=== PATIENT | female | born 1995 | race Caucasian/White ===

== ENCOUNTER 2019-11-16 08:30 | Outpatient (CLI) | payer OTHER, SELFPAY ==
[2019-11-16 09:12] LABS: Glucose Fasting 87 mg/dL
[2019-11-16 11:52] LABS: Glucose 1 Hour 130 mg/dL
[2019-11-16 12:46] LABS: Glucose 2 Hour 109 mg/dL
== END 2019-11-16 08:31 | disposition home or self-care (01) ==
PROVIDERS: PCP Physician Assistant; Visit Provider Advanced Practice Midwife
DX: N76.0 Acute vaginitis (principal)
CPT/HCPCS: 36415; 82951

== ENCOUNTER 2020-06-19 12:57 | Outpatient (CLI) | payer OTHER, SELFPAY ==
[2020-06-19 13:26] LABS: Basophils Percent Auto 0.2 % (0.2-1.2); Eosinophils Percent Auto 0.7 % (0-4.4); Hematocrit 41.4 % (37.0-47.0); Hemoglobin 13.4 g/dL (12.0-15.0); Immature Granulocyte Absolute 0.02 K/mm3 (0.00-0.031); Immature Granulocyte Percent A 0.4 % (0-0.5); Lymphocytes Absolute Auto 2.05 K/mm3 (0.9-3.2); Lymphocytes Percent Auto 35.9 % (18.3-44.2); Mean Corpuscular HGB Conc 32.4 g/dl (32-36); Mean Corpuscular Hemoglobin 28.4 pg (26-34); Mean Corpuscular Volume 87.7 fl (80-100); Mean Platelet Volume 10.5 fl (7.4-10.4); Monocytes Absolute Auto 0.3 K/mm3 (0.1-0.6); Monocytes Percent Auto 5.1 % (2.6-8.5); Neutrophils Absolute Auto 3.3 K/mm3 (1.3-6.7); Neutrophils Percent Auto 57.7 % (45.5-73.1); Platelet Count Result 255 k/mm3 (150-375); Red Blood Count 4.72 M/mm3 (4.2-5.4); Red Cell Distribution Width 12.6 % (11.5-14.5); White Blood Count 5.7 K/mm3 (4.5-10.0)
[2020-06-19 13:37] LABS: Alanine Aminotransferase 10 U/L (4-35); Albumin Level 4.4 g/dL (3.5-5.1); Alkaline Phosphatase 44 U/L (38-126); Anion Gap 4 mmol/L (8-16); Aspartate Amino Transferase 17 U/L (14-36); Bilirubin,Total 0.2 mg/dL (0.2-1.3); Blood Urea Nitrogen 13 mg/dL (7-17); Calcium 9.2 mg/dL (8.4-10.2); Carbon Dioxide 32 mmol/L (22-30); Chloride 104 mmol/L (98-107); Cholesterol 141 mg/dL (0-200); Estimated Glomerular Filt Rate > 60; Glucose 106 mg/dL (65-105); HDL Direct 61 mg/dL; Potassium 3.8 mmol/L (3.4-5.0); Sodium 140 mmol/L (137-145); Triglycerides 39 mg/dL (<150)
[2020-06-19 13:47] LABS: LDL Cholesterol Direct 58 mg/dL
== END 2020-06-19 12:58 | disposition home or self-care (01) ==
LOC: ANHLAB 13:00
PROVIDERS: PCP Family Medicine; Visit Provider Family Medicine
DX: E66.3 Overweight (principal); F41.9 Anxiety disorder, unspecified
CPT/HCPCS: 36415; 80053; 80061; 84443; 85025

== ENCOUNTER 2020-06-21 10:28 | Outpatient (CLI) | payer OTHER, SELFPAY ==
[2020-06-21 11:20] LABS: Beta HCG Quantitative < 2.39 mIU/ML
== END 2020-06-21 10:29 | disposition home or self-care (01) ==
PROVIDERS: PCP Family Medicine; Visit Provider Advanced Practice Midwife
DX: N92.5 Other specified irregular menstruation (principal)
CPT/HCPCS: 36415; 84702

== ENCOUNTER 2022-03-31 19:53 | Outpatient (RCR) | payer OTHER, SELFPAY ==
[2022-03-31 20:30] LABS: Add Urine Microscopic? YES; Appearance Urine Cloudy (Clear); Bilirubin Urine Negative (Negative); Blood Urine 3+ (Negative); Color Urine Yellow (Yellow); Glucose Urine UA Negative (Negative); Ketones Urine Negative (Negative); Leukocyte Esterase Ur Negative LEU/UL (Negative); Nitrate Urine Negative (Negative); Protein Urine Negative (Negative); Specific Grav Ur 1.015 (1.001-1.035); Urobilinogen Urine 0.2 mg/dL (<2.0)
[2022-03-31 20:36] LABS: Amorphous Sediment Urine Few; Bacteria Urine Trace /hpf; RBC Urine >75 /hpf (0-2); Squamous Epithelial Cell Urine Many /hpf (Few); WBC Urine 0-3 /hpf
[2022-03-31 21:00] VITALS: PULSE 86
--- NOTE | 2022-03-31 21:05 | PC.NURSE ---
paged Dr. Zane Willard- [phone] Dr. Zane Willard returned page @[phone]- informed of pt admission for DFM since this morning. pt also states that she has felt crampy today as well. UA reviewed- NST reactive and reviewed. will order urine culture to be sent. order to send pt home with instructions on when to return to L&D.
--- NOTE | 2022-04-01 07:37 | PM.OBTRLD ---
OB - Triage/Final Diagnosis Visit Information Date of evaluation: 05/01/22 Reason for evaluation: decreased movement Comments/Additional reasons for admission: I have assessed the risk for this patient, Olivia Olmstead Rodríguez, and determined that she would benefit from observation care. Evaluation Laboratory results: Laboratory Tests 03/31/22 20:14 Urine Color Yellow Urine Appearance Cloudy H Urine pH 7.0 Ur Specific [place] 1.015 Urine Protein Negative Urine Glucose (UA) Negative Urine Ketones Negative Ur Blood (Man) 3+ H Urine Nitrate Negative Urine Bilirubin Negative Urine Urobilinogen 0.2 Leukocyte Esterase Rfl Negative Urine RBC >75 H Urine WBC 0-3 Ur Squamous Epith Cells Many H Amorphous Sediment Few H Urine Bacteria Trace Vital signs: Vital Signs - 24 hr 03/31/22 21:00 Pulse Rate 86
== END 2022-06-29 23:59 | disposition home or self-care (01) ==
LOC: ANHOBOP 19:53
PROVIDERS: Obstetrics & Gynecology; PCP Family Medicine; Visit Provider Obstetrics & Gynecology
DX: O36.8120 Decreased fetal movements, second trimester, not applicable or unspecified (principal); Z3A.25 25 weeks gestation of pregnancy
CPT/HCPCS: 59025; 81001; 87086; 87088

== ENCOUNTER 2022-04-15 07:18 | Outpatient (CLI) | payer OTHER, SELFPAY ==
[2022-04-15 09:10] LABS: Hematocrit 36.9 % (37.0-47.0)
[2022-04-15 09:28] LABS: Glucose 1 Hour PP 50gm Dose 82 mg/dL
[2022-04-15 09:58] LABS: HIV 1/2 Ab P24 Ag Result Negative (Negative)
== END 2022-04-15 07:19 | disposition home or self-care (01) ==
PROVIDERS: PCP Family Medicine; Visit Provider Obstetrics & Gynecology
DX: Z34.80 Encounter for supervision of other normal pregnancy, unspecified trimester (principal)
CPT/HCPCS: 36415; 82947; 85014; 85018; 86703; G0432

== ENCOUNTER 2022-05-13 01:14 | Observation (INO) | payer OTHER, SELFPAY ==
[2022-05-13] VITALS (20 sets, daily range): BP systolic 112–124; BP diastolic 71–81; PULSE 80–121; RESP 16; TEMP 36.7; O2SAT 99–100
--- NOTE | 2022-05-13 01:14 | OBADM ---
This patient, Olivia Rodríguez, admitted to the OB room OB Post 115 for observation. Patient/family oriented to hospital policies and general routines including ID bracelet, bed and alarms, visiting hours, pain management, procedures, bathroom and other care routines, personal items, smoking policy, room service/diet, and visiting hours. Patient/Family are encouraged to report perceived risks to care and to ask questions if they do not understand what they are told or what they should do.
--- NOTE | 2022-05-13 01:32 | PC.NURSE ---
Notified Dr. Mishra of patient arrival to OB unit with complaints of cramping and contractions that started at 0000. Patient states she was woken up with contractions that have continued and are increasing in intensity. Patient tearful upon arrival. Mild contraction palpated while placing TOCO monitor. FHT reactive and appropriate for gestational age. VSS. Patient reports nausea that started upon arrival to hospital. Orders received.
[2022-05-13] MEDS: ONDANSETRON INJ 4 MG/2 ML VIAL IV PUSH (01:46)
[2022-05-13] MEDS: DEXTROSE 5%/LACTATED RINGERS 1,000 ML 100 ML IV CONT (01:49)
[2022-05-13] MEDS: TERBUTALINE SULFATE 1 MG/ML VIAL 0.25 MG SUB-Q (01:49)
--- NOTE | 2022-05-13 02:02 | PC.NURSE ---
Patient educated on plan of care, Speculum exam and FFN collection. Patient states understanding of education and agrees to plan of care. Speculum exam performed and FFN collected. SVE performed following collection, SVE closed/thick/high/posterior/firm.
--- NOTE | 2022-05-13 02:25 | PC.NURSE ---
Patient states that her contractions/cramps have resolved and she is resting comfortably without pain.
[2022-05-13 02:54] LABS: Fetal Fibronectin Negative
--- NOTE | 2022-05-13 03:18 | PC.NURSE ---
Patient states she is no longer feeling cramping, contractions or tightening. Patient discharge instructions reviewed. Patient instructed to follow up with Dr. Calhoun as scheduled this week. labor precautions reviewed with patient and patient provided labor precautions hand out. Patient states understanding of discharge instructions and precautions and agrees to discharge. Patient denies any questions at time of discharge.
--- NOTE | 2022-05-13 06:41 | PM.OBTRLD ---
OB - Triage/Final Diagnosis Visit Information Date of evaluation: 05/13/22 Reason for evaluation: threatened labor Comments/Additional reasons for admission: I have assessed the risk for this patient, Olivia Rodríguez, and determined that she would benefit from observation care. Evaluation Laboratory results: Laboratory Tests 05/13/22 02:02 Fibronectin Negative Vital signs: Vital Signs - 24 hr 05/13/22 01:27 05/13/22 01:30 05/13/22 01:45 Temperature 98.1 F Pulse Rate 109 H 106 H 94 Respiratory Rate 16 Blood Pressure 124/75 115/71 112/81 Pulse Oximetry 05/13/22 01:51 05/13/22 01:56 05/13/22 02:01 Temperature Pulse Rate Respiratory Rate Blood Pressure Pulse Oximetry 100 100 100 05/13/22 02:06 05/13/22 02:11 05/13/22 02:17 Temperature Pulse Rate Respiratory Rate Blood Pressure Pulse Oximetry 100 100 100 05/13/22 02:22 05/13/22 02:27 05/13/22 02:32 Temperature Pulse Rate Respiratory Rate Blood Pressure Pulse Oximetry 100 100 100 05/13/22 02:37 05/13/22 02:42 05/13/22 02:47 Temperature Pulse Rate Respiratory Rate Blood Pressure Pulse Oximetry 100 100 100 05/13/22 02:52 05/13/22 02:57 05/13/22 03:02 Temperature Pulse Rate Respiratory Rate Blood Pressure Pulse Oximetry 100 100 99 05/13/22 03:07 05/13/22 03:10 Temperature Pulse Rate 97 Respiratory Rate Blood Pressure 116/74 Pulse Oximetry 100
== END 2022-05-13 03:19 | disposition home or self-care (01) ==
PROVIDERS: Admitting Provider Obstetrics & Gynecology; PCP Family Medicine; Visit Provider Obstetrics & Gynecology
DX: O47.03 False labor before 37 completed weeks of gestation, third trimester (principal); Z3A.31 31 weeks gestation of pregnancy
CPT/HCPCS: 82731; 96361; 96372; 96374; G0378; G0379; J2405; J3105; J7121

== ENCOUNTER 2022-05-29 10:03 | Outpatient (CLI) | payer OTHER, SELFPAY ==
[2022-05-29 11:04] LABS: Strep Group A RT-PCR NOT DETECTED (Negative)
== END 2022-05-29 10:04 | disposition home or self-care (01) ==
LOC: ANHOBOP 10:11
PROVIDERS: PCP Family Medicine; Visit Provider Obstetrics & Gynecology
DX: J02.9 Acute pharyngitis, unspecified (principal)
CPT/HCPCS: 87070; 87651

== ENCOUNTER 2022-06-16 15:45 | Outpatient (RCR) | payer OTHER, SELFPAY ==
--- NOTE | 2022-04-14 22:20 | PC.NURSE ---
see obix for additional documentation on NST. Dr. Mishra notified of reactive NST.
[2022-06-16 16:19] LABS: Alanine Aminotransferase 17 U/L (6-35); Albumin Level 3.6 g/dL (3.5-5.1); Alkaline Phosphatase 343 U/L (38-126); Anion Gap 8 mmol/L (8-16); Aspartate Amino Transferase 18 U/L (14-36); Bilirubin,Total 0.4 mg/dL (0.2-1.3); Blood Urea Nitrogen 7 mg/dL (7-17); Calcium 8.6 mg/dL (8.4-10.2); Carbon Dioxide 20 mmol/L (22-30); Chloride 106 mmol/L (98-107); Estimated Glomerular Filt Rate > 60; Glucose 180 mg/dL (65-110); Potassium 4.1 mmol/L (3.4-5.0); Sodium 134 mmol/L (137-145)
[2022-06-16 16:29] VITALS: BP 115/68; PULSE 101
[2022-06-25 15:48] LABS: Chenodeoxycholic Acid 0.9 umol/L (< OR = 3.9); Cholic Acid 0.6 umol/L (< OR = 2.8); Deoxycholic Acid 0.8 umol/L (< OR = 2.3); Total Bile Acids 2.3 umol/L (< OR = 8.3)
== END 2022-07-13 23:59 | disposition home or self-care (01) ==
LOC: ANHOBOP 15:45
PROVIDERS: Obstetrics & Gynecology; PCP Family Medicine; Visit Provider Obstetrics & Gynecology
DX: O36.8120 Decreased fetal movements, second trimester, not applicable or unspecified (principal); Z3A.27 27 weeks gestation of pregnancy; O36.8130 Decreased fetal movements, third trimester, not applicable or unspecified; Z3A.36 36 weeks gestation of pregnancy
CPT/HCPCS: 36415; 59025; 80053; 82542

== ENCOUNTER 2022-06-25 07:18 | Outpatient (CLI) | payer OTHER, SELFPAY ==
[2022-06-25 08:04] VITALS: BP 119/80; PULSE 84
[2022-06-25] MEDS: TERBUTALINE SULFATE 1 MG/ML VIAL 0.25 MG SUB-Q (08:45)
[2022-06-25] MEDS: fentaNYL CITRATE INJ (*CRX) 100 MCG/2 ML VIAL 50 MCG IV PUSH (08:48)
--- NOTE | 2022-06-25 09:06 | WPDOBADMIT ---
Obstetrics - Admit Note Admission Note: 26 y/o G1 at 37 weeks with breech presentation, here for external cephalic version. Rh pos. AVSS NST reactive TOCO: no contractions ABD soft, nontender, gravid. EXT nontender Imaging: Bedside ultrasound exam by me confirmed stefan breech presentation with back along the maternal right. Fundal placenta. Adequate AFV. Procedure: After appropriate informed consent was obtained, she received terbutaline 0.25 mg IM x 1. Under ultrasound guidance, ECV was attempted. The breech was elevated out of the pelvis, and a forward somersault (clockwise) was attempted, then reverse (counterclockwise). Despite several attempts, ECV was unsuccessful. The FHR was normal throughout, and the patient tolerated the procedure well. She was kept for NST observation, then was able to go home to f/u in the office.
== END 2022-06-25 11:00 | disposition home or self-care (01) ==
LOC: ANHOBOP 07:30 → ANHOBPP 07:30
PROVIDERS: PCP Family Medicine; Visit Provider Obstetrics & Gynecology
DX: O32.1XX0 Maternal care for breech presentation, not applicable or unspecified (principal); Z3A.00 Weeks of gestation of pregnancy not specified
CPT/HCPCS: 99199; J3010; J3105

== ENCOUNTER 2022-06-30 18:26 | Inpatient (IN) | payer OTHER, SELFPAY ==
--- NOTE | 2022-06-17 07:46 | PM.OBTRLD ---
OB - Triage/Final Diagnosis Visit Information Reason for evaluation: other (pruritis) Comments/Additional reasons for admission: I have assessed the risk for this patient, Olivia K Gladis, and determined that she would benefit from observation care.
[2022-06-30] VITALS (40 sets, daily range): BP systolic 106–157; BP diastolic 55–97; PULSE 77–221; RESP 14–17; TEMP 36.3–37; O2SAT 97–99; BMI 35.2
--- NOTE | 2022-06-30 20:05 | LDADM ---
This patient, Olivia Griffith, was admitted to Labor/Delivery/Recovery 120 on 06/30/22 at 18:26. Plans for labor, pain management and were discussed with patient. Patient/family oriented to hospital policies and general routines including ID bracelet, bed and alarms, visiting hours, pain management, procedures, bathroom and other care routines, personal items, smoking policy, room service/diet and guest tray routines, infant security routines, and visiting hours. Patient/Family are encouraged to report perceived risks to care and to ask questions if they do not understand what they are told or what they should do. See OBIX for further documentation.
[2022-06-30] MEDS: LACTATED RINGERS 1,000 ML 125 ML IV CONT ×2 (20:15→21:15)
--- NOTE | 2022-06-30 21:29 | WPDANESEPPF ---
Anes - Initial Pre Proc Eval Procedure: Operation Date: 06/30/22 21:45 Proposed Procedures p Section - Erick Calhoun MD Date/Time: 06/30/22 21:29 Surgeon: Erick Calhoun MD Pre Op Diagnosis: Breech station Pre Op Diagnosis: contractions Patient Data Age: 26 Gender: F Height: 1.63 m Weight: 93 kg Last Vital Signs Pulse 86 06/30/22 21:16 BP 125/80 06/30/22 21:16 Allergies Allergy/AdvReac Type Severity Reaction Status Date / Time capsaicin Allergy Hives Verified 06/22/20 12:39 Home Medications Medication Instructions Recorded Confirmed Type PNV 153-FA 400 mcg-om3 35 mg-dha 1 tablet PO DAILY 06/16/22 06/30/22 History 25 mg-epa 5 mg-fish oil chew tablet ( Gummies) Laboratory Tests 06/30/22 06/30/22 21:15 21:15 WBC Pending RBC Pending Hgb Pending Hct Pending MCV Pending MCH Pending MCHC Pending RDW Pending Plt Count Pending MPV Pending Immature Gran % (Auto) Pending Neut % (Auto) Pending Lymph % (Auto) Pending [place] % (Auto) Pending Eos % (Auto) Pending Baso % (Auto) Pending Lymph # (Auto) Pending [place] # (Auto) Pending Eos # (Auto) Pending Baso # (Auto) Pending Abs Immat Gran (auto) Pending Absolute Neuts (auto) Pending Absolute Nucleated RBC Pending Nucleated RBC % Pending RPR Pending Patient hx anesthesia problems: none Family hx anesthesia problems: none Results Review: All pre-operative results and documents have been reviewed as part of the pre-operative evaluation. [facility] Past Medical History Medical History Spontaneous miscarriage Surgical History Surgical History History of tonsillectomy (~03/2019) Family History Family History Father , Motorcycle accident Injury Mother No problems noted. Grandparent Injury Hypertension Other Mitral valve prolapse Social History Social History Smoking status: Never smoker Second hand tobacco smoke exposure: No Alcohol intake: never Substance use: never Substance use type: does not use Lack of Transportation: No Lack of Food: Never True Current Housing: I Have Housing Concerned About Future Housing: No Difficulty Paying Gas/Electric Bills: No Difficulty Paying for Meds: No Currently Unemployed: No Education: Bachelor's Degree Difficulty w/ Childcare or Family Care: No Living arrangements: with family Spiritual care concerns: No Anes - Eval Final PreProcedure Day of Procedure 06/30/22 21:29 Patient weight: normal Heart: regular rate and rhythm Lungs: clear to auscultation Airway: Mallampati scale class II Neurological: alert and oriented Last oral intake: 6 hours ASA classification: II Emergent: no Anesthetic plan: proceed Anesthesia type and monitoring: regional spinal Results Review: All pre-operative results and documents have been reviewed as part of the pre-operative evaluation. Informed Consent: The patient's anesthetic plan and its attendant risks and benefits were discussed with the patient/family/POA. Questions were solicited and answers provided to the satisfaction of the patient/family/POA.
[2022-06-30 21:33] LABS: Basophils Percent Auto 0.2 % (0.2-1.2); Eosinophils Percent Auto 0.2 % (0-4.4); Hematocrit 37.8 % (37.0-47.0); Hemoglobin 12.1 g/dL (12.0-15.0); Immature Granulocyte Absolute 0.08 K/mm3 (0.00-0.031); Immature Granulocyte Percent A 0.6 % (0-0.5); Lymphocytes Absolute Auto 1.88 K/mm3 (0.9-3.2); Lymphocytes Percent Auto 14.9 % (18.3-44.2); Mean Corpuscular Hemoglobin 26.9 pg (26-34); Mean Platelet Volume 10.9 fl (7.4-10.4); Monocytes Absolute Auto 0.7 K/mm3 (0.1-0.6); Monocytes Percent Auto 5.7 % (2.6-8.5); Neutrophils Absolute Auto 9.9 K/mm3 (1.3-6.7); Neutrophils Percent Auto 78.4 % (45.5-73.1); Platelet Count Result 271 k/mm3 (150-375); Red Cell Distribution Width 13.9 % (11.5-14.5); White Blood Count 12.6 K/mm3 (4.5-10.0)
--- NOTE | 2022-06-30 22:02 | PM.IMHP ---
H&P: HPI History of Present Illness Date/Time: 06/30/22 22:02 Chief Complaint: Contractions Narrative: 26 y/o G1 at 38 1/7 weeks here with contractions. She is known to have breech presentation, had an unsuccessful attempt at external cephalic version. Contractions began this evening. No leakage of fluid. GBS neg. Review of Systems Review of Systems: All systems reviewed & are unremarkable except as noted in HPI and below PMFSH Past Medical History Medical History Spontaneous miscarriage Surgical History Surgical History History of tonsillectomy (~03/2019) Family History Family History Father , Motorcycle accident Injury Mother No problems noted. Grandparent Injury Hypertension Other Mitral valve prolapse Social History Social History Smoking status: Never smoker Second hand tobacco smoke exposure: No Alcohol intake: never Substance use: never Substance use type: does not use Lack of Transportation: No Lack of Food: Never True Current Housing: I Have Housing Concerned About Future Housing: No Difficulty Paying Gas/Electric Bills: No Difficulty Paying for Meds: No Currently Unemployed: No Education: Bachelor's Degree Difficulty w/ Childcare or Family Care: No Living arrangements: with family Spiritual care concerns: No Meds Home Medications and Allergies Home Medications Medication Instructions Recorded Confirmed Type PNV 153-FA 400 mcg-om3 35 mg-dha 1 tablet PO DAILY 06/16/22 06/30/22 History 25 mg-epa 5 mg-fish oil chew tablet ( Gummies) Allergies Allergy/AdvReac Type Severity Reaction Status Date / Time capsaicin Allergy Hives Verified 06/30/22 21:51 Vital Signs Vital Signs - 24 hr 06/30/22 19:46 06/30/22 20:01 06/30/22 20:16 Temperature Pulse Rate 94 93 89 Respiratory Rate Blood Pressure 133/82 123/71 125/81 Pulse Oximetry Oxygen Delivery 06/30/22 20:46 06/30/22 21:16 06/30/22 21:30 Temperature 37.0 C Pulse Rate 91 86 Respiratory Rate 17 Blood Pressure 123/80 125/80 Pulse Oximetry Oxygen Delivery 06/30/22 18:39 06/30/22 21:55 06/30/22 21:43 Temperature 37.0 C Pulse Rate Respiratory Rate 15 Blood Pressure Pulse Oximetry 98 Oxygen Delivery Room Air Exam Const: Orientation/consciousness: patient oriented x3 Other: Well-developed, well-nourished female in no acute distress. Neck: Thyroid: thyroid normal Lymphatic: no lymphadenopathy noted (in neck, axilla or inguinal nodes) Resp: Effort & Inspection: normal respiratory effort Auscultation: clear to auscultation bilaterally Cardio: Rate: regular rate Rhythm: regular rhythm Heart sounds: S1 normal heart sound present and S2 normal heart sound present GI: Other: ABD: Soft, nontender, nondistended, gravid. NST reactive. TOCO: contractions every 3-5 min No guarding or rebound tenderness. No hepatosplenomegaly. Bedside ultrasound exam by me confirms persistent breech presentation. : General: Yes no CVA tenderness Other: Cervix has changed from 1 to 2.5 cm / 80% effacement and BBOW per RN. Back/Spine/Pelvis: Back: no CVA tenderness Skin: General skin exam: normal color and no rashes or lesions noted Neuro: General: patient oriented x3 Extrem: Other: Extremities: nontender with no edema Psych: Mental Status: mental status grossly normal Affect: normal affect H&P: Results Labs Labs: Short CBC 06/30/22 Range/Units 21:15 WBC 12.6 H (4.5-10.0) K/mm3 Hgb 12.1 (12.0-15.0) g/dL Hct 37.8 (37.0-47.0) % Plt Count 271 (150-375) k/mm3 Assessment and Plan Assessment and plan (1) Breech presentation: Code(s): O32.1XX0 - Maternal c
[2022-06-30] MEDS: ceFAZolin 2 GM/D5W 50 ML 2 GM/50 ML BAG IVPB (22:06)
--- NOTE | 2022-06-30 22:06 | WPDHPUPDATE1 ---
History and Physical Update Update Date/Time: 06/30/22 22:06 History and Physical has been reviewed, including an updated exam of the patient. There are NO changes in the patient's condition. Risks, benefits, and alternatives have been discussed and questions answered. Patient agrees to proceed with procedure.
--- NOTE | 2022-06-30 22:59 | P.PCNOB_ITS ---
OB - Delivery Note Procedure Delivery date: 06/30/22 Procedure: Procedures Operation Date: 06/30/22 21:45 <No data on this case meets the specified criteria> Primary low transverse delivery Events: Breech Presentation Delivery monitor: External FHT and External Uterine Route of delivery: Specimen: Yes (cord blood) Quantitative Blood Loss (ml): 355 Anesthesia type: Spinal Disposition: PACU Complications: None Narrative: The patient was taken to the operating room where she was prepared and draped in the usual sterile fashion in dorsal supine position with a leftward tilt. She received cefazolin preoperatively. Spinal anesthesia was found to be adequate. A Pfannenstiel skin incision was made and carried through to the underlying layer of the fascia. The fascia was incised in the midline and the incision was extended laterally. The fascia was dissected free of the underlying rectus muscles. The rectus muscles were in the midline. The peritoneum was identified, tented up and entered sharply. The peritoneal incision was extended superiorly and inferiorly with good visualization of the bladder. The bladder blade was placed. The vesicouterine peritoneum was identified, tented up and entered sharply. The incision was extended laterally and the bladder flap was developed. The bladder blade was replaced. The uterus was then incised sharply in a transverse fashion along the lower uterine segment. The incision was extended laterally. The 's breech was delivered atraumatically to the sterile field to the level of the scapulae. The arms were swept across the chest and delivered. The head was gently flexed and easily delivered. The nose and mouth were bulb suctioned. After a delay, the cord was clamped and cut. The infant was handed off the field. Cord blood was collected. The placenta was removed manually and was passed off the field. The uterus was exteriorized and cleared of all clots and debris. The uterine incision was reapproximated using 0 Monocryl in a running, locked fashion. A second, imbricating layer was run with the same suture. Excellent hemostasis resulted as did excellent reapproximation of the normal anatomy. The uterus was returned the abdomen. The pelvis was irrigated copiously with warmed normal saline. Rigorous hemostasis was assured. The fascial layer was reapproximated using 0 Vicryl in a running fashion. The skin was closed with a running, subcuticular stitch of 4 0 Vicryl. Dermaflex was applied externally. Sponge, lap, needle and instrument counts were correct. The patient was taken to the recovery room in stable condition. The infant went to the nursery in stable condition. I was present and scrubbed the entire procedure. [place] Baby Date of : 06/30/22 Time of : 22:27 Weeks of gestation at delivery: 38 gender: Male Weight (pounds): 6 Weight (ounces): 12 presentation: breech Placenta delivery description: Manual Removal and Normal Configuration Cord Vessel Description: 3 Vessels and Delayed Cord Clamping score one minute: 8 score five minutes: 9
--- NOTE | 2022-06-30 23:02 | PM.OBDSVD ---
DS: Admitting Diagnosis Discharge Date 07/03/22 Admitting Diagnosis IUP at 38 1/7 weeks Labor Breech presentation DS: Discharge Diagnosis Discharge Diagnosis (1) Breech presentation: Code(s): O32.1XX0 - Maternal care for breech presentation, not applicable or unspecified Status: Acute OB - DS: Summary OB Procedures : NST and Ultrasound OB Procedures Intrapartum: OB Procedures: : None Peripartum Data Procedures: Procedures Operation Date: 06/30/22 21:45 <No data on this case meets the specified criteria> Time Spent with Patient Time attestation: Total time spent providing and/or coordinating discharge services: DS: Data Data Completed and Pending Labs on day of discharge: Labs from last 24 hours 06/30/22 06/30/22 06/30/22 21:15 21:15 21:15 WBC 12.6 H RBC 4.50 Hgb 12.1 Hct 37.8 MCV 84.0 MCH 26.9 MCHC 32.0 RDW 13.9 Plt Count 271 MPV 10.9 H Immature Gran % (Auto) 0.6 H Neut % (Auto) 78.4 H Lymph % (Auto) 14.9 L [place] % (Auto) 5.7 Eos % (Auto) 0.2 Baso % (Auto) 0.2 Lymph # (Auto) 1.88 [place] # (Auto) 0.7 H Eos # (Auto) 0.0 Baso # (Auto) 0.0 Abs Immat Gran (auto) 0.08 H Absolute Neuts (auto) 9.9 H Absolute Nucleated RBC 0.0 Nucleated RBC % 0.0 RPR Pending Blood Type A Positive Antibody Screen Negative Discharge Plan Discharge Attending physician on discharge: Erick Calhoun Discharging Clinician: Erick Calhoun Patient Disposition: Home, Self-Care Activity: may shower, may drive after 2 weeks and pelvic rest Diet: regular Wound Care Instructions: incision open to air Discharge Instructions: Education: Mom and Baby Guide Given to: Mother Follow-Up: Call your delivering provider's office for an appointment to be seen in: 1 Week Mom and baby should come to the [facility] for the follow-up appointment. Appointment Date/Time: July 05, 2022 at 11:00 am What to expect at your follow-up visit: Blood Pressure Check Call [phone] if you are unable to keep your appointment time. BREAST CARE: * Wear a snug supportive bra. * For engorgement discomfort: Breast Feeding: * Apply warm moist washcloths * Express milk as needed to relieve engorgement * Wear loose clothing Bottle Feeding: * May apply ice packs * For sore nipples: * Identify correct latch-on * Apply warm moist washcloths before and after nursing * Air dry nipples after nursing * May apply Lansinoh cream to nipples ABDOMINAL INCISION: (if applicable) * Allow incision to air dry * Do NOT use lotions for powders on your incision * When showering, allow soap and water to run over the incision, but do not wash incision PERINEAL CARE: * Until bleeding stops, use your brianna bottle after urinating * Change your pad frequently throughout the day * No tub baths until seen by your physician - You may shower ACTIVITY: * Rest as much as possible. * Do not exercise or lift anything heavier than your baby (such as laundry or other children.) * Avoid stairs or driving as much as possible. * Do not put anything into the vagina. No douching, tampons, or sexual activity until seen by physician. NOTIFY PHYSICIAN IF YOU HAVE ANY QUESTIONS OR IF ANY OF THE FOLLOWING SYMPTOMS OCCUR: * If your incision becomes red, swollen, or more painful than what you have experienced in the hospital. * If your vaginal bleeding becomes foul smelling. * If your vaginal bleeding becomes more heavy than a period or if your bleeding changes from pink to bright red. However, you may pass an occasional walnut-sized clot once or twice for the first week . * If you experience a sharp, shooting pain in you calves. * If you discover a hard, reddened area on your breast or if you experience flu-like sympt
[2022-06-30] MEDS: fentaNYL CITRATE INJ (*CRX) 100 MCG/2 ML VIAL 25 MCG IV PUSH ×2 (23:19→23:37)
[2022-06-30] MEDS: OXYTOCIN 30 UNITS/NS 500 ML 30 UNITS/500 ML BAG 125 UNITS IV CONT (23:59)
[2022-07-01] VITALS (34 sets, daily range): BP systolic 95–124; BP diastolic 44–98; PULSE 70–91; RESP 14–18; TEMP 36.4–37.4; O2SAT 97–100
[2022-07-01] MEDS: fentaNYL CITRATE INJ (*CRX) 100 MCG/2 ML VIAL 25 MCG IV PUSH (00:50)
--- NOTE | 2022-07-01 01:21 | PC.NURSE ---
Patient transferred to post room # 282 via ( stretcher ). Support person present. Oriented to unit, room, information board, rooming in, admission packet and security measures. Patient verbalizes understanding.
[2022-07-01] MEDS: KETOROLAC 30 MG/ML VIAL (*BKC) IV PUSH (01:48)
[2022-07-01] MEDS: HYDROcodone/acetaminophen (*CRX) 5-325 MG TABLET 1 TAB PO ×4 (03:13→22:33)
[2022-07-01] MEDS: DEXTROSE 5%/0.45% SOD CHL 1,000 ML 125 ML IV CONT (04:54)
[2022-07-01 05:35] LABS: Basophils Percent Auto 0.2 % (0.2-1.2); Eosinophils Percent Auto 0.1 % (0-4.4); Hematocrit 33.9 % (37.0-47.0); Hemoglobin 10.9 g/dL (12.0-15.0); Immature Granulocyte Absolute 0.06 K/mm3 (0.00-0.031); Immature Granulocyte Percent A 0.5 % (0-0.5); Lymphocytes Absolute Auto 1.82 K/mm3 (0.9-3.2); Lymphocytes Percent Auto 14.2 % (18.3-44.2); Mean Corpuscular HGB Conc 32.2 g/dl (32-36); Mean Corpuscular Hemoglobin 27.2 pg (26-34); Mean Corpuscular Volume 84.5 fl (80-100); Mean Platelet Volume 10.5 fl (7.4-10.4); Monocytes Percent Auto 7.9 % (2.6-8.5); Neutrophils Absolute Auto 9.9 K/mm3 (1.3-6.7); Neutrophils Percent Auto 77.1 % (45.5-73.1); Platelet Count Result 213 k/mm3 (150-375); Red Blood Count 4.01 M/mm3 (4.2-5.4); Red Cell Distribution Width 14.1 % (11.5-14.5); White Blood Count 12.9 K/mm3 (4.5-10.0)
[2022-07-01] MEDS: DOCUSATE SODIUM 100 MG CAPSULE PO ×2 (07:13→18:48)
[2022-07-01] MEDS: IBUPROFEN 600 MG TABLET PO ×3 (07:14→22:33)
--- NOTE | 2022-07-01 07:33 | WPDANLDPN2 ---
Anes-Prog Note L&D Date/Time: 07/01/22 07:33 Neuro status: Neuro function grossly intact. Vital Signs: Last Vital Signs Temp 36.4 C 07/01/22 04:36 Pulse 78 07/01/22 04:36 Resp 16 07/01/22 04:36 BP 107/69 07/01/22 04:36 Pulse Ox 100 07/01/22 04:36 O2 Del Method Room Air 07/01/22 01:00 Pain score (VAS): 0 I/O: Intake & Output 06/30/22 06/30/22 07/01/22 15:59 23:59 07:59 Intake Total 2000 600 Output Total 555 913 Balance 1440 772 Patient feedback: Patient satisfied with anesthetic care.
--- NOTE | 2022-07-01 07:33 | WPDANLDNPN2 ---
Anes-Prog Note L&D-Neuraxial Date/Time: 07/01/22 07:33 Patient feedback: Patient satisfied with post-operative pain management.
[2022-07-01 11:29] LABS: Rapid Plasma Reagin Non-Reactive (NonReactive)
[2022-07-01] MEDS: MULTIVIT/MIN/PREN/FOL AC/IRON TABLET 1 TAB PO (11:41)
--- NOTE | 2022-07-01 12:56 | PM.OBPNVD ---
OB - PN: Subj Subjective Date/time seen: 07/01/22 12:56 Narrative: Pain OK. Tolerating diet. Would like circumcision for son. OB - PN: Obj Data Labs 07/01/22 05:27 Labs: Laboratory Results - last 24 hr 06/30/22 06/30/22 06/30/22 21:15 21:15 21:15 WBC 12.6 H RBC 4.50 Hgb 12.1 Hct 37.8 MCV 84.0 MCH 26.9 MCHC 32.0 RDW 13.9 Plt Count 271 MPV 10.9 H Immature Gran % (Auto) 0.6 H Neut % (Auto) 78.4 H Lymph % (Auto) 14.9 L [place] % (Auto) 5.7 Eos % (Auto) 0.2 Baso % (Auto) 0.2 Lymph # (Auto) 1.88 [place] # (Auto) 0.7 H Eos # (Auto) 0.0 Baso # (Auto) 0.0 Abs Immat Gran (auto) 0.08 H Absolute Neuts (auto) 9.9 H Absolute Nucleated RBC 0.0 Nucleated RBC % 0.0 RPR Non-reactive Blood Type A Positive Antibody Screen Negative 07/01/22 05:27 WBC 12.9 H RBC 4.01 L Hgb 10.9 L Hct 33.9 L MCV 84.5 MCH 27.2 MCHC 32.2 RDW 14.1 Plt Count 213 MPV 10.5 H Immature Gran % (Auto) 0.5 Neut % (Auto) 77.1 H Lymph % (Auto) 14.2 L [place] % (Auto) 7.9 Eos % (Auto) 0.1 Baso % (Auto) 0.2 Lymph # (Auto) 1.82 [place] # (Auto) 1.0 H Eos # (Auto) 0.0 Baso # (Auto) 0.0 Abs Immat Gran (auto) 0.06 H Absolute Neuts (auto) 9.9 H Absolute Nucleated RBC 0.0 Nucleated RBC % 0.0 RPR Blood Type Antibody Screen OB - PN A/P Plan Comments: A: POD#1, doing well. P: Routine care. Reviewed circ. Exam Narrative: AVSS I/O OK ABD soft, nontender, fundus firm. Incision c/d/i. EXT nontender
--- NOTE | 2022-07-01 13:20 | PC.NURSE ---
[id number] Introductions were made, then consulted with patient to assess needs related to . Mother led the conversation with her?plans to feed?her infant and the?experience so far. Resources provided for inpatient with name written on the white board and offer of assistance. Mother voiced understanding of information and will call if there is a request for assistance. Reported to the primary RN. [phone] Purposefully rounded after a request to assist with . Mother is holding infant in clothing. Mother works well with her infant with encouragement and education. Encouraged understanding of the benefits of skin to skin (demonstrating unwrapping infant and placing upright on her chest), stimulating with massage touch, changing positions to encourage wakefulness, how to watch for early feeding cues, positioning, supporting with the tea cup/sandwich hold with ear, shoulder, hip alignment, asymmetrical latch (off-center), leading with the chin with a big, open, wide gape and body close to mother. Infant latched optimally to the left breast in football position. Education given to mother of how to visualize suck/swallow ratios and listen for drinking at the breast. Infant was able to maintain latch without discomfort to mother. Nipple care reviewed with optimal latch and good positioning. Resources used to facilitate learning were used with the tool. Reviewed detaching from the breast and to encourage offering the right breast. Resources provided for inpatient assistance. Mother voiced understanding of information, demonstrated learning and will call if there is a request for assistance. Reported to the primary RN.
--- NOTE | 2022-07-01 14:31 | PC.NURSE ---
[id number] Consulted with patient to assess needs related to . Mother led conversation with her experience with feeding baby so far. Mother works well with her infant with encouragement. Post C/S mother is in a chair for the first time. Reviewed working with , supporting breast and how to protect the nipples with an optimal deep latch, and good positioning. Reviewed positioning and alignment, supporting breast, off-centered (asymmetrical latch) and leading with the chin with big, open, wide gape. Attempted to latch optimally to the right breast in football position. Post circumcision Infant was not able to latch with the tea cup hold that was used earlier. Encouraged understanding the benefits of skin to skin and hand expressing for colostrum. Infant fed colostrum from a spoon, lapped up some colostrum with his tongue, then was gaggy and feeding method was switched to a syringe. Mother was assisted back to the bed as she is hurting and uncomfortable. Mother voiced understanding of the education shared, to call for assistance if the does not latch or if there is discomfort with . Reported to the primary RN.
[2022-07-01] MEDS: HYDROcodone/acetaminophen (*CRX) 10-325 MG TABLET 1 TAB PO (14:35)
[2022-07-02] MEDS: HYDROcodone/acetaminophen (*CRX) 5-325 MG TABLET 1 TAB PO ×3 (04:58→17:01)
[2022-07-02] MEDS: IBUPROFEN 600 MG TABLET PO ×3 (04:59→17:00)
[2022-07-02] MEDS: DOCUSATE SODIUM 100 MG CAPSULE PO ×2 (08:05→17:00)
[2022-07-02] MEDS: MULTIVIT/MIN/PREN/FOL AC/IRON TABLET 1 TAB PO (08:05)
[2022-07-02] MEDS: HYDROcodone/acetaminophen (*CRX) 10-325 MG TABLET 1 TAB PO ×2 (08:05→22:48)
[2022-07-02 08:20] VITALS: BP 100/62; PULSE 67; RESP 16; TEMP 36.9; O2SAT 99
--- NOTE | 2022-07-02 08:47 | PM.OBPNVD ---
OB - PN: Subj Subjective Date/time seen: 07/02/22 08:47 Narrative: Pain OK. Tolerating diet. OB - PN: Obj Data Labs 07/01/22 05:27 Labs: Laboratory Results - last 24 hr 06/30/22 21:15 RPR Non-reactive OB - PN A/P Plan Comments: A: POD#2, doing well. P: Routine care. Exam Narrative: AVSS I/O OK ABD soft, nontender, fundus firm. Incision c/d/i. EXT nontender
--- NOTE | 2022-07-02 11:11 | PC.NURSE ---
[phone] Consulted with mother to assess needs. Mother states she has been through the night and denies any concerns or need for assistance from at this time. Mother also has great support and resources provided for mother to request an inpatient or outpatient assistance. Mother has relationships to people who work at [facility] and the mom/baby guide for additional resources. Reported to Primary RN.
[2022-07-02 19:58] VITALS: BP 117/65; PULSE 88; RESP 18; TEMP 36.8; O2SAT 99
[2022-07-03] MEDS: HYDROcodone/acetaminophen (*CRX) 5-325 MG TABLET 1 TAB PO ×4 (05:15→19:06)
[2022-07-03] MEDS: IBUPROFEN 600 MG TABLET PO ×3 (05:16→19:06)
[2022-07-03 07:55] VITALS: BP 116/68; PULSE 87; RESP 22; TEMP 36; O2SAT 100
--- NOTE | 2022-07-03 08:00 | PC.NURSE ---
PT introductions made and plan of care discussed per post op c section, pain management, breast feeding, daily care activities. PT and spouse both recipients of such instructions and no barriers to learning identified at this time. PT received such instructions per one to one discussion, mom baby care guide and demonstrations this shift. Pt verbalized understanding of such care.
--- NOTE | 2022-07-03 08:09 | PC.NURSE ---
On 07/03/22, the student, Judith Trevizo, provided care and completed [facility] documentation on this patient. I have reviewed the student's documentation and agree with the findings.
--- NOTE | 2022-07-03 08:54 | PM.OBPNVD ---
OB - PN: Subj Subjective Date/time seen: 07/03/22 08:54 Narrative: Pain OK. Tolerating diet. Considering discharge to home. OB - PN: Obj Data Labs 07/01/22 05:27 OB - PN A/P Plan Comments: A: POD#3, doing well. P: May go home to f/u 4 weeks. Exam Narrative: AVSS ABD soft, nontender, fundus firm. Incision c/d/i. EXT nontender
[2022-07-03] MEDS: DOCUSATE SODIUM 100 MG CAPSULE PO (10:58)
[2022-07-03] MEDS: SIMETHICONE 80 MG TAB.CHEW PO ×2 (10:58→15:25)
[2022-07-03] MEDS: MULTIVIT/MIN/PREN/FOL AC/IRON TABLET 1 TAB PO (10:59)
[2022-07-03 11:00] VITALS: PULSE 87; RESP 22; O2SAT 100
[2022-07-03 17:00] VITALS: BP 116/68; PULSE 87; RESP 22; TEMP 36; O2SAT 100
[2022-07-05 11:30] VITALS: BP 120/87; PULSE 90; RESP 18; TEMP 36.9; O2SAT 99
== END 2022-07-03 19:23 | disposition home or self-care (01) | DRG 788 ==
LOC: ANHLDR 23:03 → ANHOB2 07-01 01:22
PROVIDERS: Admitting Provider Obstetrics & Gynecology; PCP Family Medicine; Visit Provider Obstetrics & Gynecology
PROC: 10D00Z1 Extraction of Products of Conception, Low, Open Approach (ICD-10-PCS; CPT 59514; principal; 2022-06-30 21:45)
DX: O32.1XX0 Maternal care for breech presentation, not applicable or unspecified (principal); Z37.0 Single live birth; Z3A.38 38 weeks gestation of pregnancy
CPT/HCPCS: 36415; 85025; 86592; 86850; 86900; 86901; A9270; J0690; J1885; J2274; J2590; J3010; J7120

== ENCOUNTER 2023-10-10 08:06 | Outpatient (CLI) | payer OTHER, SELFPAY | END 2023-10-10 08:07 | disposition home or self-care (01) | PROVIDERS: Visit Provider Obstetrics & Gynecology | DX: Z34.80 Encounter for supervision of other normal pregnancy, unspecified trimester (principal) | CPT/HCPCS: 36415; 84144; 84702 ==

== ENCOUNTER 2023-10-14 09:58 | Outpatient (CLI) | payer OTHER, SELFPAY ==
[2023-10-14 10:53] LABS: Beta HCG Quantitative 229.39 mIU/ML
== END 2023-10-14 09:59 | disposition home or self-care (01) ==
LOC: ANHLAB 10:02
PROVIDERS: Visit Provider Obstetrics & Gynecology
DX: O20.0 Threatened abortion (principal); Z3A.00 Weeks of gestation of pregnancy not specified
CPT/HCPCS: 36415; 84702

== ENCOUNTER 2023-11-20 09:10 | Observation (INO) | payer OTHER, SELFPAY ==
[2023-11-20 09:30] VITALS: BMI 31.8
[2023-11-20] MEDS: DEXTROSE 5%/LACTATED RINGERS 1,000 ML 999 ML IV CONT (10:34)
[2023-11-20] MEDS: ONDANSETRON INJ 4 MG/2 ML VIAL IV PUSH (10:34)
[2023-11-20 10:37] VITALS: BP 111/64; PULSE 76
[2023-11-20 10:38] VITALS: BP 111/64; PULSE 76; RESP 16; TEMP 37.2
[2023-11-20 10:44] LABS: Basophils Percent Auto 0.1 % (0.2-1.2); Eosinophils Percent Auto 0.4 % (0-4.4); Hematocrit 37.5 % (37.0-47.0); Hemoglobin 12.8 g/dL (12.0-15.0); Immature Granulocyte Absolute 0.01 K/mm3 (0.00-0.031); Immature Granulocyte Percent A 0.1 % (0-0.5); Lymphocytes Absolute Auto 1.88 K/mm3 (0.9-3.2); Lymphocytes Percent Auto 25.4 % (18.3-44.2); Mean Corpuscular HGB Conc 34.1 g/dl (32-36); Mean Corpuscular Hemoglobin 29.4 pg (26-34); Mean Platelet Volume 10.5 fl (7.4-10.4); Monocytes Absolute Auto 0.4 K/mm3 (0.1-0.6); Monocytes Percent Auto 5.5 % (2.6-8.5); Neutrophils Absolute Auto 5.1 K/mm3 (1.3-6.7); Neutrophils Percent Auto 68.5 % (45.5-73.1); Platelet Count Result 242 k/mm3 (150-375); Red Blood Count 4.36 M/mm3 (4.2-5.4); Red Cell Distribution Width 12.9 % (11.5-14.5); White Blood Count 7.4 K/mm3 (4.5-10.0)
[2023-11-20 11:13] LABS: Add Urine Microscopic? NO; Appearance Urine Clear (Clear); Bilirubin Urine Negative (Negative); Blood Urine Negative (Negative); Color Urine Yellow (Yellow); Glucose Urine UA Negative (Negative); Ketones Urine 1+ mg/dL (Negative); Leukocyte Esterase Ur Negative LEU/UL (Negative); Nitrate Urine Negative (Negative); Protein Urine Negative (Negative); Specific Grav Ur 1.025 (1.001-1.035); pH Urine 6.5 (5.0-9.0)
[2023-11-20 11:19] LABS: Alanine Aminotransferase 13 U/L (6-35); Alkaline Phosphatase 59 U/L (38-126); Anion Gap 10 mmol/L (4-12); Aspartate Amino Transferase 26 U/L (14-36); Bilirubin,Total 0.4 mg/dL (0.2-1.3); Blood Urea Nitrogen 7 mg/dL (7-17); Calcium 8.7 mg/dL (8.4-10.2); Carbon Dioxide 20 mmol/L (22-30); Chloride 104 mmol/L (98-107); Estimated Glomerular Filt Rate > 60; Glucose 82 mg/dL (65-110); Potassium 3.7 mmol/L (3.4-5.0); Sodium 134 mmol/L (137-145)
[2023-11-20] MEDS: DEXTROSE 5%/LACTATED RINGERS 1,000 ML 250 ML IV CONT (11:33)
--- NOTE | 2023-11-20 11:33 | PC.NURSE ---
Pt states nausea is better. Apple juice given.
--- NOTE | 2023-11-20 12:45 | OBADM ---
This patient, Olivia Griffith, admitted to the OB room 116 for observation. Patient/family oriented to hospital policies and general routines including ID bracelet, bed and alarms, visiting hours, pain management, procedures, bathroom and other care routines, personal items, smoking policy, room service/diet, and visiting hours. Patient/Family are encouraged to report perceived risks to care and to ask questions if they do not understand what they are told or what they should do.
--- NOTE | 2023-11-20 12:50 | PC.NURSE ---
Reviewed labs with Dr. Calhoun also.
--- NOTE | 2023-11-20 12:50 | PC.NURSE ---
Pt has tolerated the apple juice and wanting to go home. Dr. Calhoun on unit and in to see her. Discussed over the counter meds she can try and will change Zofran to ODT form. Orders received for discharge.
--- NOTE | 2023-11-20 12:54 | P.HP_ITS ---
Obstetrics - Admit Note Admission Note: 27 y/o at 9w3d here with nausea and vomiting. No bleeding. Feels a little better after IVF and IV Zofran. AVSS ABD soft, nontender EXT nontender UA shows 1+ ketones. CBC/CMP ok A: Nausea and vomiting in . P: Home to try B6, famotidine, and Zofran ODT 4 mg q 6 hours as needed. F/u o ffice as scheduled.
--- NOTE | 2023-12-03 14:20 | PM.OBTRLD ---
OB - Triage/Final Diagnosis Visit Information Comments/Additional reasons for admission: I have assessed the risk for this patient, Olivia Griffith, and determined that she would benefit from observation care. Evaluation Laboratory results: Laboratory Tests 11/20/23 11/20/23 10:37 10:38 WBC 7.4 RBC 4.36 Hgb 12.8 Hct 37.5 MCV 86.0 MCH 29.4 MCHC 34.1 RDW 12.9 Plt Count 242 MPV 10.5 H Immature Gran % (Auto) 0.1 Neut % (Auto) 68.5 Lymph % (Auto) 25.4 [place] % (Auto) 5.5 Eos % (Auto) 0.4 Baso % (Auto) 0.1 L Lymph # (Auto) 1.88 [place] # (Auto) 0.4 Eos # (Auto) 0.0 Baso # (Auto) 0.0 Abs Immat Gran (auto) 0.01 Absolute Neuts (auto) 5.1 Absolute Nucleated RBC 0.000 Nucleated RBC % 0.0 Sodium 134 L Potassium 3.7 Chloride 104 Carbon Dioxide 20 L Anion Gap 10 BUN 7 Creatinine 0.50 L Estim Creat Clear Calc Not Reportable Estimated GFR > 60 Glucose 82 Calcium 8.7 Total Bilirubin 0.4 AST 26 ALT 13 Alkaline Phosphatase 59 Total Protein 7.0 Albumin 4.0 Urine Color Yellow Urine Appearance Clear Urine pH 6.5 Ur Specific [place] 1.025 Urine Protein Negative Urine Glucose (UA) Negative Urine Ketones 1+ H Ur Blood (Man) Negative Urine Nitrate Negative Urine Bilirubin Negative Urine Urobilinogen 1.0 Leukocyte Esterase Rfl Negative Final Diagnosis (1) Nausea and vomiting during : Code(s): O21.9 - Vomiting of , unspecified Status: Acute
== END 2023-11-20 13:18 | disposition home or self-care (01) ==
PROVIDERS: Admitting Provider Obstetrics & Gynecology; Visit Provider Obstetrics & Gynecology
DX: O21.0 Mild hyperemesis gravidarum (principal); Z3A.09 9 weeks gestation of pregnancy
CPT/HCPCS: 36415; 80053; 81003; 85025; 96361; 96374; G0378; G0379; J2405; J7121

== ENCOUNTER 2024-06-12 12:13 | Outpatient (CLI) | payer OTHER, SELFPAY ==
--- OUTSIDE RECORDS SUMMARY | 2024-06-12 12:18 | XMS_ITS | Continuity of Care Document ---
Author Organization [facility] Address [address] [place] [address] Phone Care Team Providers Care Side Laster Tack Name Role Phone SARAHY MONTES SOFIA Unavailable Unavailable Allergies, Adverse Reactions, Alerts Substance Reaction Status Criticality No Known Allergies Active No Inform ation Medications Medication Instructions Dosage Effective Dates (start - stop) Status Comments ondansetron 4 mg disintegrating tablet take 2 tablet by oral route every [address] on top of the tongue where they will dissolve, then swallow 8 MG - Active 28 mg iron-800 mcg tablet - Active Vitamin D3 50 mcg (2,000 unit) tablet take 1 Tablet by Oral route once as directed 1 Tablet - Active Procedures Procedure Date 1ST TRIMESTER ULTRASOUND ROUTINE COLLECTION OF VENOUS BLOOD Nov- Advance Directives Directive Yes / No Effective Date File Name No Information Encounters Encounter Description Practice Location Reason(s) For Visit Diagnoses Date Provider Providers Copied on Encounter [facility], [address], [place], [address], [place] tel:[phone] [facility] No Information 2 SARAHY MONTES. [address], [place], [place], [id number] , [place]. tel:[phone] Referring Provider: REBECCA Cole, [address], [place], [address]. tel:[phone] [facility], [address], [place], [address], tel:[phone] [facility] Mild hyperemesis gravidarumIrregula r menstruation, unspecifiedPregnan cy with inconclusive viabilityWeeks Gestation of Sep-0 2 MD NATHANAEL CABALLERO. [address], [address], [place], [place], [id number] , . tel: [phone] Referring Provider: REBECCA Cole, [address], [place], [address]. tel:[phone] [facility], [address], [place], [address], [place] tel:[phone] [facility] No Information Nov-0 2 MD LAWRENCE JEFF. [address], [address], [place], [address], [place]. tel: [phone] Family History Family Member Type Diagnosis Age At Onset No Information Payers Payer name Insurance type Covered democrat ID Authoriza tikenneth(s) UMR [id number] PPO [id number] CI [id number] Social History Type Description Quantity Date Captured Comments Sex Female Smoking Status No Information Chief Complaint And Reason For Visit No Information History Of Present Illness Encounter Date Complaint History Of Prese nt Illness No Information Instructions Date Instruction Additional Infor mation No Information Assessments Type Assessment Date No Information
[2024-06-12 12:31] LABS: Hematocrit 34.2 % (37.0-47.0); Hemoglobin 10.5 g/dL (12.0-15.0); Mean Corpuscular HGB Conc 30.7 g/dl (32-36); Mean Corpuscular Hemoglobin 24.5 pg (26-34); Mean Corpuscular Volume 79.9 fl (80-100); Mean Platelet Volume 10.1 fl (7.4-10.4); Platelet Count Result 246 k/mm3 (150-375); Red Blood Count 4.28 M/mm3 (4.2-5.4); Red Cell Distribution Width 15.5 % (11.5-14.5); White Blood Count 8.3 K/mm3 (4.5-10.0)
[2024-06-12 13:16] LABS: Syphilis IgG/IgM Antibody Negative (Negative)
== END 2024-06-12 12:14 | disposition home or self-care (01) ==
LOC: ANHLAB 12:16
PROVIDERS: PCP Family Medicine; Visit Provider Obstetrics & Gynecology
DX: Z01.812 Encounter for preprocedural laboratory examination (principal)
CPT/HCPCS: 36415; 85027; 86593; 86850; 86900; 86901

== ENCOUNTER 2024-06-14 05:07 | Inpatient (IN) | payer OTHER, SELFPAY ==
--- NOTE | 2024-06-10 12:53 | HP_ITS ---
This report was moved to the correct visit on 06/17/2024. The original report was signed by Haris Rossi MD on 06/10/24 1253. H&P: HPI History of Present Illness Date/Time: 06/10/24 12:50 Chief Complaint: Term with previous section Narrative: 28-year-old 3 para 1 with previous section for breech at 39 weeks gestation confirmed by early ultrasound presents for repeat section. has been uncomplicated. Review of Systems Review of Systems: All systems reviewed & are unremarkable except as noted in HPI and below PMFSH Past Medical History Medical History Spontaneous miscarriage Surgical History Surgical History History of tonsillectomy (~03/2019) Family History Family History Father , Motorcycle accident InjuryMother No problems noted. Grandparent Injury HypertensionOther Mitral valve prolapse Social History Social History Smoking status: Never smoker Second hand tobacco smoke exposure: No Alcohol intake: never Substance use: never Substance use type: does not use Lack of Transportation: No Lack of Food: Never True Current Housing: I Have Housing Concerned About Future Housing: No Difficulty Paying Gas/Electric Bills: No Difficulty Paying for Meds: No Currently Unemployed: No Education: Bachelor's Degree Difficulty w/ Childcare or Family Care: No Living arrangements: with family Spiritual care concerns: No Meds Home Medications and Allergies Home Medications ?Medication ?Instructions ?Recorded ?Confirmed ?Type PNV 153-FA 400 mcg-om3 35 mg-dha 1 tablet PO DAILY 06/16/22 03/08/24 History 25 mg-epa 5 mg-fish oil chew tablet ( Gummies) ondansetron 4 mg disintegrating 4 mg PO Q6H PRN nausea and 11/20/23 03/08/24 Rx tablet vomiting #20 tabs Allergies Allergy/AdvReac Type Severity Reaction Status Date / Time capsaicin Allergy Hives Verified 03/08/24 13:59 metoclopramide (From Reglan) Allergy Anxiety Verified 03/08/24 13:59 Exam Const: General: cooperative, healthy appearing and comfortable Nutritional Appearance: average body habitus Orientation/consciousness: oriented to person, oriented to place and oriented to time HENMT: Head: normal to inspection Resp: Effort & Inspection: normal respiratory effort Cardio: Rate: regular rate Rhythm: regular rhythm Heart sounds: S1 normal heart sound present and S2 normal heart sound present GI: Inspection: normal to inspection (Soft gravid uterus) : External Female Exam: normal external appearance Speculum Exam - Vagina: normal appearance of the vagina Speculum Exam - Cervix: normal appearance of the cervix Assessment and Plan Assessment and plan (1) Term : Code(s): Z34.90 - Encounter for supervision of normal , unspecified, unspecified trimester Status: Acute (2) Previous section: Code(s): Z98.891 - History of uterine scar from previous surgery Status: Acute Plan Proceed with repeat low-transverse section Please be advised this is a medical document. It is intended for xyoi-vm-giue communication. It is written in medical language and may contain unfamiliar abbreviations or verbiage. Medical documents are intended to carry relevant information, facts as evident, and the clinical opinion of the practitioner at the time of the encounter. This report may have been done utilizing a voice recognition system. Attempts have been made to correct errors. However, there may be uncorrected grammatical, spelling, and recognition errors present. The file time of this note does not necessarily represent the time the patient was seen. Report Initialized date/time: Haris Rossi MD 06/10/24 / 1253 Electronically signed by: Haris Rossi MD 06/10/24 1253 [facility]
[2024-06-14] VITALS (74 sets, daily range): BP systolic 98–123; BP diastolic 56–94; PULSE 69–159; RESP 16–18; TEMP 36.2–36.7; O2SAT 97–100; BMI 36.6
--- OUTSIDE RECORDS SUMMARY | 2024-06-14 00:16 | XMS_ITS | Continuity of Care Document ---
Author Organization [facility] Address [address] [place] [address] Phone Care Team Providers Care Wool And Pelt Grader Name Role Phone SARAHY MONTES SOFIA Unavailable [...] Diagnoses Date Provider Providers Copied on Encounter [facility], [address], [place], [address], [place] tel:[phone] [facility] No Information 2 SARAHY MONTES. [address], [address], [place], [place], [id number] , [place]. tel:[phone] Referring Provider: REBECCA Cole, [address], [place], [address]. tel:[phone] [facility], [address], [place], [address], tel:[phone] [facility] Mild hyperemesis gravidarumIrregula r menstruation, unspecifiedPregnan cy with inconclusive viabilityWeeks Gestation of Sep-0 2 MD NATHANAEL CABALLERO. [address], [address], [place], [place], [id number] , . tel: [phone] Referring Provider: REBECCA Cole, [address], [place], [address]. tel:[phone] [facility], [address], [place], [address], [place] tel:[phone] [facility] No Information Nov-0 2 MD LAWRENCE JEFF. [address], [address], [place], [address], [place]. tel: [phone] Family History Family Member Type Diagnosis Age At Onset No Information Payers Payer name Insurance type Covered democrat ID Authoriza tikenneth(s) UMR [id number] PPO [id number] CI [id number] Social History Type Description Quantity Date Captured Comments Sex Female Smoking Status No Information Chief Complaint And Reason For Visit No Information History Of Present Illness Encounter Date Complaint History Of Prese nt Illness No Information Instructions Date Instruction Additional Infor mation No Information Assessments Type Assessment Date No Information
--- OUTSIDE RECORDS SUMMARY | 2024-06-14 05:23 | XMS_ITS | Continuity of Care Document ---
Author Organization [facility] Address [address] [place] [address] Phone Care Team Providers Care Cloth Washer Operator Name Role Phone SARAHY MONTES SOFIA Unavailable [...] Diagnoses Date Provider Providers Copied on Encounter [facility], [address], [place], [address], [place] tel:[phone] [facility] No Information 2 SARAHY MONTES. [address], [address], [place], [place], [id number] , [place]. tel:[phone] Referring Provider: REBECCA Cole, [address], [place], [address]. tel:[phone] [facility], [address], [place], [address], tel:[phone] [facility] Mild hyperemesis gravidarumIrregula r menstruation, unspecifiedPregnan cy with inconclusive viabilityWeeks Gestation of Sep-0 2 MD NATHANAEL CABALLERO. [address], [address], [place], [place], [id number] , . tel: [phone] Referring Provider: REBECCA Cole, [address], [place], [address]. tel:[phone] [facility], [address], [place], [address], [place] tel:[phone] [facility] No Information Nov-0 2 MD LAWRENCE JEFF. [address], [address], [place], [address], [place]. tel: [phone] Family History Family Member Type Diagnosis Age At Onset No Information Payers Payer name Insurance type Covered democrat ID Authoriza tikenneth(s) UMR [id number] PPO [id number] CI [id number] Social History Type Description Quantity Date Captured Comments Sex Female Smoking Status No Information Chief Complaint And Reason For Visit No Information History Of Present Illness Encounter Date Complaint History Of Prese nt Illness No Information Instructions Date Instruction Additional Infor mation No Information Assessments Type Assessment Date No Information
[2024-06-14] MEDS: LACTATED RINGERS 1,000 ML 999 ML IV CONT (05:35)
[2024-06-14] MEDS: ONDANSETRON INJ 4 MG/2 ML VIAL IV PUSH (05:36)
[2024-06-14] MEDS: FAMOTIDINE 20 MG/2 ML VIAL IV PUSH (05:36)
[2024-06-14] MEDS: ACETAMINOPHEN 500 MG TABLET 1000 MG PO (05:36)
[2024-06-14] MEDS: LACTATED RINGERS 1,000 ML 125 ML IV CONT (05:37)
--- NOTE | 2024-06-14 05:37 | P.PNAN_ITS ---
Anes - Initial Pre Proc Eval Procedure: c section repeat Date/Time: 06/14/24 05:37 Surgeon: Erick Calhoun MD Pre Op Diagnosis: previous c section Pre Op Diagnosis: C/S Patient Data Age: 28 Gender: F Height: 1.57 m Weight: 90.9 kg Allergies Allergy/AdvReac Type Severity Reaction Status Date / Time capsaicin Allergy Hives Verified 03/08/24 13:59 metoclopramide (From Reglan) Allergy Anxiety Verified 03/08/24 13:59 Home Medications ?Medication ?Instructions ?Recorded ?Confirmed ?Type PNV 153-FA 400 mcg-om3 35 mg-dha 1 tablet PO DAILY 06/16/22 03/08/24 History 25 mg-epa 5 mg-fish oil chew tablet ( Gummies) ondansetron 4 mg disintegrating 4 mg PO Q6H PRN nausea and 11/20/23 03/08/24 Rx tablet vomiting #20 tabs : gestational age (, ELEAZAR 06/21/24) Patient hx anesthesia problems: none Family hx anesthesia problems: none Results Review: All pre-operative results and documents have been reviewed as part of the pre- operative evaluation. [facility] Past Medical History Medical History Spontaneous miscarriage Surgical History Surgical History History of tonsillectomy (~03/2019) Family History Family History Father , Motorcycle accident Injury Mother No problems noted. Grandparent Injury Hypertension Other Mitral valve prolapse Social History Social History Smoking status: Never smoker Second hand tobacco smoke exposure: No Alcohol intake: never Substance use: never Substance use type: does not use Lack of Transportation: No Lack of Food: Never True Current Housing: I Have Housing Concerned About Future Housing: No Difficulty Paying Gas/Electric Bills: No Difficulty Paying for Meds: No Currently Unemployed: No Education: Bachelor's Degree Difficulty w/ Childcare or Family Care: No Living arrangements: with family Spiritual care concerns: No Anes - Eval Final PreProcedure Day of Procedure 06/14/24 05:37 Patient weight: normal Heart: regular rate and rhythm Lungs: normal air movement Airway: Mallampati scale class II Neurological: alert and oriented Last oral intake: 6 hours ASA classification: II Emergent: yes Anesthetic plan: proceed Anesthesia type and monitoring: regional spinal and standard monitoring Results Review: All pre-operative results and documents have been reviewed as part of the pre- operative evaluation. Informed Consent: The patient's anesthetic plan and its attendant risks and benefits were discussed with the patient/family/POA. Questions were solicited and answers provided to the satisfaction of the patient/family/POA.
--- NOTE | 2024-06-14 05:45 | WPDHPUPDATE1 ---
History and Physical Update Update Date/Time: 06/14/24 05:45 History and Physical has been reviewed, including an updated exam of the patient. There are NO changes in the patient's condition. Risks, benefits, and alternatives have been discussed and questions answered. Patient agrees to proceed with procedure.
[2024-06-14] MEDS: ceFAZolin 2 GM/D5W 50 ML 2 GM/50 ML BAG IVPB (05:51)
--- NOTE | 2024-06-14 06:32 | P.PCNOB_ITS ---
OB - Delivery Note Procedure Delivery date: 06/14/24 Pre-op diagnosis: Previous Delivery Post-op Diagnosis: Same Induction method: None Delivery monitor: External FHT Prior to decision for section, [facility] labor guidelines were considered and discussed with the patient and staff. Decision made to proceed with the section.: Yes Procedure Performed: Repeat Surgeon: Haris Willard MD Anesthesia type: Spinal Description of Procedure/Findings: Patient was admitted in active labor at 39 weeks gestation. She was scheduled for GIRMA repeat later in the day. After obtaining informed consent she was taken back prepped draped in the normal sterile fashion placed in the supine position. Under excellent spinal anesthetic the abdomen was entered in Pfannenstiel fashion progressive layers of fascia. Fascia incised midline carried in upward outward fashion bilaterally. Underlying muscles sharply dissected. Parietal peritoneum male by Orin clamps and by sharp dissection carried superiorly inferiorly to the dome of the bladder bladder blade placed and bladder flap formed. Low-transverse incision made the head delivered in the GIRMA position anterior posterior shoulder delivered spontaneously. Cord clamps x2 and cut infant passed off the table given Apgars of 9 [id number] 9 [id number]. Cord blood was drawn. Placenta delivered intact manually. Uterus delivered on the abdomen wrapped in a moist towel. After assuring no membranes or debris abraded the uterus, the uterus was closed with continuous running 0 Vicryl from lateral edge to lateral edge. This was followed by 2nd imbricating running locking 0 Vicryl from lateral edge to lateral edge. Hemostasis was assured and ovaries and tubes appeared within normal limits. The uterus returned to the abdomen. Laps removed and accounted for. The fascia closed with continuous running 0 Vicryl from lateral edge to lateral edge. Skin closed with 4 Monocryl and glue. QBL was 375. All sponge, needle, instrument counts were correct. There were no immediate complications noted Specimen: No Estimated Blood Loss: 375 Drains: No Packing: No Pathology: None sent Complications: No immediate complications Condition: Stable Disposition: Floor [place] Baby Date of : 06/14/24 Time of : 06:13 Gestational Age by Date: 39 Infant gender: Female Weight (pounds): 7 Weight (ounces): 11 presentation: vertex position: Left Occiput Anterior Placenta delivery description: Manual Removal Cord Vessel Description: 3 Vessels score one minute: 9 score five minutes: 9
--- NOTE | 2024-06-14 06:35 | P.DS_ITS ---
DS: Admitting Diagnosis Discharge Date 06/16/2024 Admitting Diagnosis Term /previous section DS: Discharge Diagnosis Discharge Diagnosis (1) Term : Code(s): Z34.90 - Encounter for supervision of normal , unspecified, unspecified trimester Status: Acute (2) Previous section: Code(s): Z98.891 - History of uterine scar from previous surgery Status: Acute DS: Summary Hospital Course Reason for hospitalization: Patient was admitted in active labor at 39 weeks gestation on the a.m. of she underwent repeat low-transverse section Hospital Course: Patient's hospital course unremarkable. She remained afebrile. She was up, voiding without difficulty, eating regular diet, ambulating, and generally without complaints. Time Spent with Patient Time attestation: Total time spent providing and/or coordinating discharge services: Exam Const: General: cooperative, healthy appearing and comfortable Nutritional Appearance: average body habitus Orientation/consciousness: oriented to person, oriented to place and oriented to time HENMT: Head: normal to inspection Resp: Effort & Inspection: normal respiratory effort Cardio: Rate: regular rate Rhythm: regular rhythm Heart sounds: S1 normal heart sound present and S2 normal heart sound present GI: Inspection: normal to inspection and incision (Wound clean dry and intact) Discharge Plan Discharge Attending physician on discharge: Haris Rossi Discharging Clinician: Haris Rossi Patient Disposition: Home, Self-Care Activity: no straining, may drive after 2 weeks and pelvic rest Diet: heart healthy Wound Care Instructions: follow printed instructions Patient Instructions: Antibiotic Form Patient Language: Albanian Stand Alone Forms: General Discharge Information Follow-up/Referrals: Haris Rossi MD [Physician] - Discharge Medications: New hydrocodone-acetaminophen 5-325 mg tablet 1 tablet PO Q4H PRN (Reason: pain) Qty: 20 0RF Continued Gummies 400 mcg-35 mg- 25 mg-5 mg Tablet,Chewable 1 tablet PO DAILY ondansetron 4 mg tablet,disintegrating 4 mg PO Q6H PRN (Reason: nausea and vomiting) Qty: 20 2RF Date of admission: 06/14/24 05:07 Primary Care Provider: Daphne Daniels Admitting Provider: Erick Calhoun Attending physician on admission: Erick Calhoun Condition: Stable
--- NOTE | 2024-06-14 06:45 | LDADM ---
This patient, Olivia Griffith, was admitted to OB 2nd Floor Room 277 on 06/14/24 at 05:07. Plans for labor, pain management and were discussed with patient. Patient/family oriented to hospital policies and general routines including ID bracelet, bed and alarms, visiting hours, pain management, procedures, bathroom and other care routines, personal items, smoking policy, room service/diet and guest tray routines, infant security routines, and visiting hours. Patient/Family are encouraged to report perceived risks to care and to ask questions if they do not understand what they are told or what they should do. See OBIX for further documentation.
[2024-06-14] MEDS: MORPHINE SULFATE (*CRX) 2 MG/ML INJ IV PUSH (08:51)
[2024-06-14] MEDS: KETOROLAC 15 MG/ML VIAL (*BKC) IV PUSH ×3 (08:52→18:40)
--- NOTE | 2024-06-14 10:51 | PC.NURSE ---
Patient transferred to post room #277 via stretcher. Support person present. Oriented to unit, room, information board, rooming in, admission packet and security measures. Patient verbalizes understanding.
[2024-06-14] MEDS: DEXTROSE 5%/0.45% SOD CHL 1,000 ML 125 ML IV CONT (11:42)
[2024-06-14] MEDS: SIMETHICONE 80 MG TAB.CHEW PO ×2 (11:44→18:41)
[2024-06-14] MEDS: ACETAMINOPHEN 325 MG TABLET 650 MG PO ×2 (11:48→18:41)
[2024-06-14 12:00] LABS: HIV 1/2 Ab P24 Ag Result Negative (Negative)
--- NOTE | 2024-06-14 18:17 | PC.NURSE ---
1600. Introductions were made, then consulted with patient to assess needs related to . Discussed with mother her plans to feed her and the experience so far. Encouraged mother to express any questions or concerns she has regarding feedings. Advised her to call out for a latch check or if she needs assistance waking or positioning baby. Reviewed the blue feeding worksheet for required output and feeding at least 8-12 times every 24 hours. Resources provided for inpatient and outpatient services with the feeding sheet, mom/baby guide, & admission packet. ? Observed mother latching infant to the breast in football position. Infant was able to maintain an appropriate latch. Mother declines nipple pain/discomfort throughout feeding. Encouraged mother to keep awake and nursing at the breast for 15 minutes. Mother taught to listen for infant swallowing during feedings. Reviewed using the blue feeding sheet to record time and duration of feeding. Mother voiced understanding of the education shared, to call for assistance if the infant does not latch or if there is discomfort with . name/number on communication board. Reported to the Primary RN.?
[2024-06-14] MEDS: DOCUSATE SODIUM 100 MG CAPSULE PO (18:41)
[2024-06-14] MEDS: LANOLIN (LANSINOH) 7.5 GM CREAM 1 APPLIC TOPICAL (18:42)
[2024-06-14] MEDS: HYDROcodone/acetaminophen (*CRX) 5-325 MG TABLET 1 TAB PO (22:16)
[2024-06-15] MEDS: KETOROLAC 15 MG/ML VIAL (*BKC) IV PUSH (00:28)
[2024-06-15] MEDS: ACETAMINOPHEN 325 MG TABLET 650 MG PO ×4 (00:29→19:21)
[2024-06-15 00:30] VITALS: BP 110/70; PULSE 69; RESP 16; TEMP 36.3; O2SAT 100
[2024-06-15] MEDS: HYDROcodone/acetaminophen (*CRX) 5-325 MG TABLET 1 TAB PO ×4 (04:38→22:45)
[2024-06-15 05:07] LABS: Basophils Percent Auto 0.2 % (0.2-1.2); Eosinophils Percent Auto 0.4 % (0-4.4); Hematocrit 31.7 % (37.0-47.0); Hemoglobin 9.5 g/dL (12.0-15.0); Immature Granulocyte Absolute 0.03 K/mm3 (0.00-0.031); Immature Granulocyte Percent A 0.3 % (0-0.5); Lymphocytes Absolute Auto 2.25 K/mm3 (0.9-3.2); Lymphocytes Percent Auto 24.6 % (18.3-44.2); Mean Corpuscular Hemoglobin 24.5 pg (26-34); Mean Corpuscular Volume 81.9 fl (80-100); Mean Platelet Volume 9.9 fl (7.4-10.4); Monocytes Absolute Auto 0.7 K/mm3 (0.1-0.6); Monocytes Percent Auto 7.2 % (2.6-8.5); Neutrophils Absolute Auto 6.2 K/mm3 (1.3-6.7); Neutrophils Percent Auto 67.3 % (45.5-73.1); Platelet Count Result 229 k/mm3 (150-375); Red Blood Count 3.87 M/mm3 (4.2-5.4); Red Cell Distribution Width 15.9 % (11.5-14.5); White Blood Count 9.2 K/mm3 (4.5-10.0)
[2024-06-15] MEDS: SIMETHICONE 80 MG TAB.CHEW PO ×3 (06:47→15:37)
[2024-06-15] MEDS: DOCUSATE SODIUM 100 MG CAPSULE PO ×2 (06:47→15:37)
[2024-06-15] MEDS: POLYSACCHARIDE IRON COMPLEX 150 MG CAPSULE PO ×2 (06:48→15:37)
[2024-06-15] MEDS: IBUPROFEN 600 MG TABLET PO ×3 (06:48→19:21)
--- NOTE | 2024-06-15 07:53 | P.PNOB_ITS ---
OB - PN: Subj Subjective Date/time seen: 06/15/24 07:53 Patient comments: no complaints, pain well controlled and tolerating diet [place] baby status: doing well OB - PN: Obj Data Labs 06/15/24 04:59 Labs: Laboratory Results - last 24 hr 06/14/24 06/15/24 11:03 04:59 WBC 9.2 RBC 3.87 L Hgb 9.5 L Hct 31.7 L MCV 81.9 MCH 24.5 L MCHC 30.0 L RDW 15.9 H Plt Count 229 MPV 9.9 Immature Gran % (Auto) 0.3 Neut % (Auto) 67.3 Lymph % (Auto) 24.6 [place]ake % (Auto) 7.2 Eos % (Auto) 0.4 Baso % (Auto) 0.2 Lymph # (Auto) 2.25 [place]ake # (Auto) 0.7 H Eos # (Auto) 0.0 Baso # (Auto) 0.0 Abs Immat Gran (auto) 0.03 Absolute Neuts (auto) 6.2 Absolute Nucleated RBC 0.000 Nucleated RBC % 0.0 HIV 1&2 Ab/P24 Ag 4thGn Negative OB - PN A/P Assessment and Plan (1) Term : Code(s): Z34.90 - Encounter for supervision of normal , unspecified, unspecified trimester Status: Acute (2) Previous section: Code(s): Z98.891 - History of uterine scar from previous surgery Status: Acute Time Spent With Patient Time: Total time spent is greater than 50% in coordination of care (as documented) at patient's floor/unit and/or counseling patient: Review of Systems 2 Review of Systems: All systems reviewed & are unremarkable except as noted in HPI and below Exam 2 Const: General: cooperative, healthy appearing and comfortable Nutritional Appearance: average body habitus Orientation/consciousness: oriented to person, oriented to place and oriented to time Resp: Effort & Inspection: normal respiratory effort Cardio: Rate: regular rate Rhythm: regular rhythm Heart sounds: S1 normal heart sound present and S2 normal heart sound present GI: Inspection: normal to inspection and incision (cdi)
[2024-06-15 08:20] VITALS: BP 113/77; PULSE 73; RESP 16; TEMP 36.6; O2SAT 100
[2024-06-15] MEDS: LIDOCAINE 5% PATCH 1 PATCH TRANSDERM (08:33)
[2024-06-15] MEDS: MULTIVIT/MIN/PREN/FOL AC/IRON TABLET 1 TAB PO (08:33)
--- NOTE | 2024-06-15 08:46 | PC.NURSE ---
0825: Introductions were made, communication board updated. Mother states that is going well and that she is able to independently latch infant. She breastfed her first child for 18 months. Baby prefers one breast over the other, but baby is latching to both sides. No pain noted. OP services information provided for after discharge, if needed. Mother declines any additional assistance or education at this time. Mother is encouraged to call for assistance if her infant doesn?t latch, pain with latching, questions or concerns.
--- NOTE | 2024-06-15 14:08 | PC.NURSE ---
Patient instructed on viewing the discharge video Mother & Baby Care, The First Two Weeks . Patient was given the opportunity and encouraged to ask questions. Patient verbalized understanding of information shared and has been given the mother/baby guide for home reference.
--- NOTE | 2024-06-15 14:54 | WPDANLDPN2 ---
Anes-Prog Note L&D Date/Time: 06/15/24 14:54 Comfortable throughout: section Neuraxial method: spinal Epidural/Spinal procedure site: clean & non-tender Neuro status: Neuro function grossly intact. Cardiovascular status: normal Respiratory status: normal Airway patency: baseline Mental status: baseline Post-Op hydration status: normal Vital Signs: Last Vital Signs Temp 98 F 06/15/24 08:20 Pulse 73 06/15/24 08:20 Resp 16 06/15/24 08:20 BP 113/77 06/15/24 08:20 Pulse Ox 100 06/15/24 08:20 O2 Del Method Room Air 06/14/24 09:00 Pain score (VAS): 0/10 I/O: Intake & Output 06/14/24 06/15/24 06/15/24 23:59 07:59 15:59 Intake Total 1400 240 Output Total 1225 Balance 175 240 Post-procedural complaints: none Patient feedback: Patient satisfied with anesthetic care.
--- NOTE | 2024-06-15 14:55 | WPDANLDNPN2 ---
Anes-Prog Note L&D-Neuraxial Date/Time: 06/15/24 14:55 Neuraxial medications: intrathecal PF morphine Opiod-related complaints: none Patient feedback: Patient satisfied with post-operative pain management.
[2024-06-15 22:45] VITALS: BP 106/71; PULSE 82; RESP 18; TEMP 36.5; O2SAT 98
[2024-06-16] MEDS: ACETAMINOPHEN 325 MG TABLET 650 MG PO ×2 (01:16→07:18)
[2024-06-16] MEDS: IBUPROFEN 600 MG TABLET PO ×2 (01:16→07:17)
--- NOTE | 2024-06-16 05:48 | P.PNOB_ITS ---
OB - PN: Subj Subjective Date/time seen: 06/16/24 05:48 Patient comments: no complaints, pain well controlled, tolerating diet and flatus present [place] baby status: doing well [place] feeding status: exclusively breast feeding OB - PN: Obj Data Labs 06/15/24 04:59 OB - PN A/P Assessment and Plan (1) Term : Code(s): Z34.90 - Encounter for supervision of normal , unspecified, unspecified trimester Status: Acute (2) Previous section: Code(s): Z98.891 - History of uterine scar from previous surgery Status: Acute Plan home Time Spent With Patient Time: Total time spent is greater than 50% in coordination of care (as documented) at patient's floor/unit and/or counseling patient: Review of Systems 2 Review of Systems: All systems reviewed & are unremarkable except as noted in HPI and below Exam 2 Const: General: cooperative, healthy appearing and comfortable O rientation/consciousness: oriented to person, oriented to place and oriented to time Resp: Effort & Inspection: normal respiratory effort Cardio: Rate: regular rate Rhythm: regular rhythm Heart sounds: S1 normal heart sound present and S2 normal heart sound present GI: Inspection: normal to inspection and incision (cdi)
[2024-06-16] MEDS: POLYSACCHARIDE IRON COMPLEX 150 MG CAPSULE PO (07:18)
[2024-06-16] MEDS: SIMETHICONE 80 MG TAB.CHEW PO (07:18)
[2024-06-16] MEDS: MULTIVIT/MIN/PREN/FOL AC/IRON TABLET 1 TAB PO (07:18)
[2024-06-16] MEDS: DOCUSATE SODIUM 100 MG CAPSULE PO (07:18)
--- NOTE | 2024-06-16 07:39 | PC.NURSE ---
Consulted with mother concerning needs and she shared her ability to independently latch infant optimally without pain. Mother is feeding appropriately for growth of and understands stimulating to eat if needed. Infant has had appropriate feedings in the last 24 hours meets the outcomes for weight, output, blood sugar and jaundice at this time. Reinforced understanding of milk production, transition of milk, signs of adequate intake, transition of stool, prevention/relief of engorgement, plugged ducts, mastitis, responsive watching for feeding cues, the different methods of stimulating to breastfeed 1-3 hours after the start of the last feeding, community resources, and when to call a provider using the resource of the feeding sheet along with the mom and baby guide. Mother voiced understanding of the information shared, is confident to continue effectively her infant at home, when to call for assistance, denies any additional assistance or education at this time. Reported to the Primary RN.
[2024-06-16 08:10] VITALS: BP 127/72; PULSE 89; RESP 16; TEMP 37.1; O2SAT 98
[2024-06-18 10:09] VITALS: BP 118/74; PULSE 94; RESP 20; TEMP 36.9; O2SAT 100
== END 2024-06-16 10:02 | disposition home or self-care (01) | DRG 788 ==
LOC: ANHLDR 05:46 → ANHOB2 06-15 09:17 → ANHLDR 06-17 09:49
PROVIDERS: Admitting Provider Obstetrics & Gynecology; PCP Family Medicine; Visit Provider Obstetrics & Gynecology
PROC: 10D00Z1 Extraction of Products of Conception, Low, Open Approach (ICD-10-PCS; CPT 59514; principal; 2024-06-14 12:00)
DX: O34.211 Maternal care for low transverse scar from previous cesarean delivery (principal); Z37.0 Single live birth; Z3A.39 39 weeks gestation of pregnancy
CPT/HCPCS: 36415; 85025; 85027; 86593; 86703; 86850; 86900; 86901; A9270; G0432; J0690; J1885; J2270; J2274; J2405; J2590; J7120